=== PATIENT | male | born 1990 | race African-American/Black ===

== ENCOUNTER 2017-09-27 19:50 | Emergency (ER) | payer MEDICAID ==
[~2017-09-27] VITALS: Ht 182.9 cm; Wt 202.3 kg
[~2017-09-27 19:50] MED LIST: DIVA500T4 PO
--- NOTE | 2017-09-27 19:50 | NUR ---
BB SELF; "I FEEL PARANOID, LIKE SOMEONE IS OUT TO GET ME" VSS NAD A/OX4 ABLE TO MAKE NEEDS KNOWN. WILL CONTINUE TO MONITOR FOR ANY CHANGES DURING THE SHIFT.
--- NOTE | 2017-09-27 19:51 | NUR ---
AGUEDA CASTELLANO BEDSIDE FOR EVAL
[2017-09-27 20:30] LABS: BASOPHILS # (AUTO) 0.1 /CMM (0.0-0.2); BASOPHILS % (AUTO) 0.8 % (0.0-2.0); EOSINOPHILS % (AUTO) 2.4 % (0.0-6.0); HEMATOCRIT 35 % (39-51); LYMPHOCYTES # (AUTO) 2.8 /CMM (0.8-4.8); LYMPHOCYTES % (AUTO) 26.9 % (20.0-44.0); MEAN CORPUSCULAR HEMOGLOBIN 28 PG (26.0-33.0); MEAN CORPUSCULAR HGB CONC 34 g/dl (31.0-36.0); MEAN CORPUSCULAR VOLUME 83 fL (80-96); MONOCYTES # (AUTO) 0.8 /CMM (0.1-1.30); MONOCYTES % (AUTO) 7.6 % (2.0-12.0); NEUTROPHILS # (AUTO) 6.4 /CMM (1.8-8.9); NEUTROPHILS % (AUTO) 62.3 % (43.0-81.0); PLATELET COUNT (AUTO) 415 /CMM (150-450); RDW COEFFICIENT OF VARIATION 16.5 (11.5-15.0); RED BLOOD CELL COUNT(AUTO) 4.25 MIL/uL (4.5-6.0); WHITE BLOOD COUNT (AUTO) 10.3 K/uL (4.3-11.0)
[2017-09-27 20:34] LABS: APPEARANCE,URINE Clear (CLEAR); BILIRUBIN,URINE Negative (NEGATIVE); BLOOD, URINE Negative Ery/uL (NEGATIVE); COLOR,URINE Yellow (YELLOW); KETONES,URINE Trace (NEGATIVE); LEUKOCYTE ESTERASE ,URINE Negative (NEGATIVE); NITRITE, URINE Negative (NEGATIVE); PH,URINE 6.5 (5.0-8.0); PROTEIN,URINE Negative (NEGATIVE); UGLUCOSE Negative (NEGATIVE)
--- NOTE | 2017-09-27 20:35 | NUR ---
PATIENT HAS ADMITTED TO ME AND AGUEDA LENZ THAT HE WANTS TO HURT SELF/OTHERS AND HAS A PLAN TO JUMP OF A BIRDGE STATING "ITS JUST TOO MUCH". PT HAS ALSO STATED 3 PSYCH MEDICATIONS THAT HE CURRENTLY IS NONCOMPLIANT WITH AT THIS TIME. STATES "DID YOU HEAR THAT" REGARDING VOICES IN HEAD
[2017-09-27 20:41] LABS: CALCIUM, SERUM 9.3 mg/dL (8.5-10.1); CARBON DIOXIDE 27 mmol/L (21-32); CHLORIDE 103 mmol/L (98-107); GLUCOSE 150 mg/dL (74-106); SODIUM SERUM 137 mmol/L (136-145); UREA NITROGEN, BLOOD 15 mg/dL (7-18)
[2017-09-27 20:47] LABS: ALANINE AMINOTRANSFERASE 61 U/L (12-78); ALBUMIN 3.2 g/dL (3.4-5.0); ALCOHOL, BLOOD < 3 mg/dL (0-0); ALKALINE PHOSPHATASE 87 U/L (46-116); ASPARTATE AMINOTRANSFERASE 39 U/L (15-37); BILIRUBIN,DIRECT 0.1 mg/dL (0.0-0.2); BILIRUBIN,TOTAL 0.2 mg/dL (0.2-1.0); TOTAL PROTEIN, SERUM 7.5 g/dL (6.4-8.2)
[2017-09-27 20:49] LABS: ACETAMINOPHEN < 10 ug/ml (10-30); SALICYLATE 2.1 mg/dL (2.8-20.0)
--- NOTE | 2017-09-27 22:55 | NUR ---
CALLED ART NATURAL RESOURCE SPECIALIST
--- NOTE | 2017-09-28 00:27 | NUR ---
ART AT BEDSIDE FOR EVAL
--- NOTE | 2017-09-28 01:12 | NUR ---
[facility] [phone] ex [phone] nurse to nurse so call [facility] [address] [facility] [id number]
--- NOTE | 2017-09-28 01:26 | NUR ---
REPORT GIVEN TO [facility]
[2017-09-28 02:11] VITALS: BP 131/77
== END 2017-09-28 02:12 ==
LOC: ER 19:50
DX: R45.851 Suicidal ideations (principal); J45.909 Unspecified asthma, uncomplicated; F31.9 Bipolar disorder, unspecified; I10 Essential (primary) hypertension
CPT/HCPCS: 36415; 80048-TC; 80076-TC; 80305; 81000-TC; 85025-TC; A4606; G0480; Z7610

== ENCOUNTER 2022-04-19 08:05 | Emergency (ER) | payer MEDICAID, OTHER ==
[~2022-04-19] VITALS: Ht 182.9 cm; Wt 172.4 kg
--- NOTE | 2022-04-19 08:25 | NUR ---
BIBS W/ C/O BEING "DEPRESSED"; SUICIDAL W/ PLAN "THROW MYSELF INTO TRAFFIC". WANTS VOL PSYCH ADMIT TO [facility]Y. -HI
--- NOTE | 2022-04-19 08:30 | NUR ---
Covid swab done and sent to lab.
--- NOTE | 2022-04-19 08:44 | NUR ---
URINE SAMPLE PROVIDED BY VEENA
[2022-04-19 09:09] LABS: BASOPHILS # (AUTO) 0.1 K/uL (0.0-0.2); BASOPHILS % (AUTO) 1.2 % (0.0-2.0); HEMATOCRIT 40 % (39-51); HEMOGLOBIN 12.7 g/dL (13.5-17.5); LYMPHOCYTES # (AUTO) 2.4 K/uL (0.8-4.8); LYMPHOCYTES % (AUTO) 26.1 % (20.0-44.0); MEAN CORPUSCULAR HGB CONC 32 g/dl (31.0-36.0); MEAN CORPUSCULAR VOLUME 80 fL (80-96); MONOCYTES # (AUTO) 0.6 K/uL (0.1-1.30); MONOCYTES % (AUTO) 6.1 % (2.0-12.0); NEUTROPHILS % (AUTO) 64.6 % (43.0-81.0); PLATELET COUNT (AUTO) 355 K/uL (150-450); RED BLOOD CELL COUNT(AUTO) 4.95 MIL/uL (4.5-6.0); WHITE BLOOD COUNT (AUTO) 9.3 K/uL (4.3-11.0)
[2022-04-19 09:15] LABS: BILIRUBIN,URINE NEGATIVE (NEGATIVE); COLOR,URINE DARK YELLOW (YELLOW); LEUKOCYTE ESTERASE ,URINE NEGATIVE (NEGATIVE); NITRITE, URINE NEGATIVE (NEGATIVE); PROTEIN,URINE NEGATIVE (NEGATIVE); UGLUCOSE NEGATIVE (NEGATIVE); UROBILINOGEN,URINE 0.2 EU/dL (0.2)
[2022-04-19 09:18] LABS: CALCIUM, SERUM 9.1 mg/dL (8.5-10.1); CARBON DIOXIDE 30 mmol/L (21-32); CHLORIDE 102 mmol/L (98-107); GLUCOSE 165 mg/dL (74-106); SODIUM SERUM 137 mmol/L (136-145); UREA NITROGEN, BLOOD 14 mg/dL (7-18)
[2022-04-19 09:23] LABS: ALANINE AMINOTRANSFERASE 25 U/L (12-78); ALBUMIN 3.4 g/dL (3.4-5.0); ALKALINE PHOSPHATASE 106 U/L (46-116); ASPARTATE AMINOTRANSFERASE 15 U/L (15-37); BILIRUBIN,DIRECT 0.1 mg/dL (0.0-0.2); BILIRUBIN,TOTAL 0.3 mg/dL (0.2-1.0); TOTAL PROTEIN, SERUM 8.1 g/dL (6.4-8.2)
[2022-04-19 09:26] LABS: ACETAMINOPHEN 0 ug/ml (10-30); ALCOHOL, BLOOD < 3 mg/dL (0-0)
[2022-04-19 09:43] LABS: BACTERIA,URINE None seen /HPF (None Seen)
[2022-04-19 09:44] LABS: RBC,URINE 0-2 /HPF (0-2); SQUAMOUS EPITHELIAL CELL,UR Moderate /HPF (None Seen)
--- NOTE | 2022-04-19 10:25 | NUR ---
CLINICALS FAXED TO [facility].
[2022-04-19 12:58] VITALS: BP 162/96
--- NOTE | 2022-04-19 12:59 | NUR ---
TRANSPORTED VIA [employer] SOFTWARE. STABLE CONDITION.
== END 2022-04-19 13:01 ==
LOC: ER 08:10
DX: R45.851 Suicidal ideations (principal); F31.9 Bipolar disorder, unspecified; J45.909 Unspecified asthma, uncomplicated; I10 Essential (primary) hypertension; Z91.14 Patient's other noncompliance with medication regimen; Z20.822 Contact with and (suspected) exposure to COVID-19
CPT/HCPCS: 99285; 85025; 80048; 80076; 81001; 36415; 87426; 80143; 80320; 80307; C9803; G0480

== ENCOUNTER 2022-08-07 14:04 | Emergency (ER) | payer OTHER ==
[~2022-08-07] VITALS: Ht 182.9 cm; Wt 145.1 kg
[2022-08-07 14:19] VITALS: BP 160/104
--- NOTE | 2022-08-07 14:43 | NUR ---
covid swab collected and sent to lab
--- NOTE | 2022-08-07 14:54 | NUR ---
fabric coating supervisor at bedside
[2022-08-07 15:20] LABS: BASOPHILS # (AUTO) 0.1 K/uL (0.0-0.2); BASOPHILS % (AUTO) 0.7 % (0.0-2.0); EOSINOPHILS % (AUTO) 0.4 % (0.0-6.0); HEMATOCRIT 38 % (39-51); HEMOGLOBIN 11.9 g/dL (13.5-17.5); LYMPHOCYTES % (AUTO) 15.9 % (20.0-44.0); MEAN CORPUSCULAR HGB CONC 31 g/dl (31.0-36.0); MEAN CORPUSCULAR VOLUME 78 fL (80-96); MONOCYTES # (AUTO) 0.8 K/uL (0.1-1.30); MONOCYTES % (AUTO) 6.1 % (2.0-12.0); NEUTROPHILS # (AUTO) 9.6 K/uL (1.8-8.9); NEUTROPHILS % (AUTO) 76.9 % (43.0-81.0); PLATELET COUNT (AUTO) 430 K/uL (150-450); RED BLOOD CELL COUNT(AUTO) 4.87 MIL/uL (4.5-6.0); WHITE BLOOD COUNT (AUTO) 12.4 K/uL (4.3-11.0)
[2022-08-07 15:33] LABS: CALCIUM, SERUM 9.2 mg/dL (8.5-10.1); CARBON DIOXIDE 27 mmol/L (21-32); CHLORIDE 101 mmol/L (98-107); CREATININE 0.9 mg/dL (0.6-1.3); GLUCOSE 162 mg/dL (74-106); POTASSIUM 3.9 mmol/L (3.5-5.1); SODIUM SERUM 136 mmol/L (136-145); UREA NITROGEN, BLOOD 13 mg/dL (7-18)
[2022-08-07 15:40] LABS: ALANINE AMINOTRANSFERASE 25 U/L (12-78); ALBUMIN 3.5 g/dL (3.4-5.0); ALCOHOL, BLOOD < 3 mg/dL (0-10); ALKALINE PHOSPHATASE 102 U/L (46-116); ASPARTATE AMINOTRANSFERASE 21 U/L (15-37); BILIRUBIN,DIRECT 0.1 mg/dL (0.0-0.2); BILIRUBIN,TOTAL 0.3 mg/dL (0.2-1.0)
[2022-08-07 15:54] LABS: BILIRUBIN,URINE NEGATIVE (NEGATIVE); COLOR,URINE YELLOW (YELLOW); LEUKOCYTE ESTERASE ,URINE TRACE (NEGATIVE); NITRITE, URINE NEGATIVE (NEGATIVE); PROTEIN,URINE NEGATIVE (NEGATIVE); UGLUCOSE NEGATIVE (NEGATIVE); UROBILINOGEN,URINE 0.2 EU/dL (0.2)
[2022-08-07 15:58] LABS: RBC,URINE 0-2 /HPF (0-2)
[2022-08-07 15:59] LABS: BACTERIA,URINE None seen /HPF (None Seen)
--- NOTE | 2022-08-07 18:45 | NUR ---
FAXED CLINICALS TO [facility].
== END 2022-08-07 19:18 | disposition left against medical advice (07) ==
LOC: ER 14:07
DX: F30.9 Manic episode, unspecified (principal); R44.0 Auditory hallucinations; I10 Essential (primary) hypertension; J45.909 Unspecified asthma, uncomplicated; E11.9 Type 2 diabetes mellitus without complications; F17.200 Nicotine dependence, unspecified, uncomplicated; Z20.822 Contact with and (suspected) exposure to COVID-19; Z59.00 Homelessness unspecified; Z79.899 Other long term (current) drug therapy
CPT/HCPCS: 99283; 85025; 80048; 80076; 81001; 36415; 87426; 80143; 80320; 80307; C9803; G0480

== ENCOUNTER 2024-04-30 19:24 | Emergency (ER) | payer OTHER ==
[~2024-04-30] VITALS: Ht 182.9 cm; Wt 181.4 kg
[2024-04-30 21:02] VITALS: BP 168/113; TEMP 97.9; O2SAT 98
[2024-04-30 21:28] LABS: BASOPHILS % (AUTO) 0.3 % (0.0-2.0); EOSINOPHILS # (AUTO) 0.2 K/uL (0.0-0.7); EOSINOPHILS % (AUTO) 2.1 % (0.0-6.0); HEMATOCRIT 37 % (39-51); HEMOGLOBIN 12.1 g/dL (13.5-17.5); LYMPHOCYTES # (AUTO) 2.3 K/uL (0.8-4.8); LYMPHOCYTES % (AUTO) 21.3 % (20.0-44.0); MEAN CORPUSCULAR HEMOGLOBIN 26 PG (26.0-33.0); MEAN CORPUSCULAR HGB CONC 33 g/dl (31.0-36.0); MEAN CORPUSCULAR VOLUME 79 fL (80-96); MONOCYTES # (AUTO) 0.6 K/uL (0.1-1.30); MONOCYTES % (AUTO) 5.7 % (2.0-12.0); NEUTROPHILS # (AUTO) 7.7 K/uL (1.8-8.9); NEUTROPHILS % (AUTO) 70.6 % (43.0-81.0); PLATELET COUNT (AUTO) 419 K/uL (150-450); RED BLOOD CELL COUNT(AUTO) 4.66 MIL/uL (4.5-6.0); RED CELL DISTRIBUTION WIDTH 16.2 % (11.5-15.0); WHITE BLOOD COUNT (AUTO) 10.8 K/uL (4.3-11.0)
[2024-04-30 21:35] LABS: CALCIUM, SERUM 8.6 mg/dL (8.5-10.1); CARBON DIOXIDE 26 mmol/L (21-32); CHLORIDE 103 mmol/L (98-107); CREATININE 0.9 mg/dL (0.6-1.3); GLUCOSE 206 mg/dL (74-106); POTASSIUM 3.9 mmol/L (3.5-5.1); SODIUM SERUM 138 mmol/L (136-145); UREA NITROGEN, BLOOD 9 mg/dL (7-18)
[2024-04-30 21:41] LABS: ALANINE AMINOTRANSFERASE 71 U/L (12-78); ALBUMIN 3.4 g/dL (3.4-5.0); ALCOHOL, BLOOD < 3 mg/dL (0-10); ALKALINE PHOSPHATASE 119 U/L (46-116); ASPARTATE AMINOTRANSFERASE 52 U/L (15-37); BILIRUBIN,DIRECT 0.2 mg/dL (0.0-0.2); BILIRUBIN,TOTAL 0.5 mg/dL (0.2-1.0); SALICYLATE 3.2 mg/dL (2.8-20.0); TOTAL PROTEIN, SERUM 7.8 g/dL (6.4-8.2)
[2024-04-30 21:44] LABS: ACETAMINOPHEN <10 ug/ml (10-30)
[2024-04-30] MEDS ORDERED: OLANZAPINE 5 MG TABLET ONE (23:29)
[2024-04-30] MEDS: OLANZAPINE 5 MG TABLET PO ONE (23:31)
[2024-04-30 23:50] LABS: APPEARANCE,URINE CLEAR (CLEAR); BILIRUBIN,URINE NEGATIVE (NEGATIVE); BLOOD, URINE NEGATIVE Ery/uL (NEGATIVE); COLOR,URINE YELLOW (YELLOW); KETONES,URINE NEGATIVE (NEGATIVE); LEUKOCYTE ESTERASE ,URINE NEGATIVE (NEGATIVE); NITRITE, URINE NEGATIVE (NEGATIVE); PROTEIN,URINE NEGATIVE (NEGATIVE); UGLUCOSE TRACE mg/dL (NEGATIVE)
[2024-05-01 00:01] LABS: BARBITURATE, URINE NEGATIVE (NEGATIVE); BENZODIAZEPINE, URINE NEGATIVE (NEGATIVE); COCCAINE, URINE NEGATIVE (NEGATIVE); OPIATE, URINE NEGATIVE (NEGATIVE); PHENCYCLIDINE SCREEN,URINE NEGATIVE (NEGATIVE)
[2024-05-01 00:07] LABS: AMPHETAMINE, URINE POSITIVE (NEGATIVE)
[2024-05-01 00:08] LABS: CANNABINOID, URINE POSITIVE (NEGATIVE)
[2024-05-01 00:32] LABS: ADD URINE CULTURE NO; BACTERIA,URINE None seen /HPF (None Seen); RBC,URINE NONE SEEN /HPF (0-2); SQUAMOUS EPITHELIAL CELL,UR None Seen /HPF (None Seen); WBC,URINE NONE SEEN /HPF (0-3)
[2024-05-01] MEDS ORDERED: OLANZAPINE ZYDIS 5 MG TAB.RAPDIS ONE (04:35)
[2024-05-01] MEDS: OLANZAPINE ZYDIS 5 MG TAB.RAPDIS PO ONE (04:38)
== END 2024-05-01 05:13 | disposition left against medical advice (07) ==
LOC: ER 19:28
DX: F23 Brief psychotic disorder (principal); R45.851 Suicidal ideations; E11.9 Type 2 diabetes mellitus without complications; F17.200 Nicotine dependence, unspecified, uncomplicated; I10 Essential (primary) hypertension; J45.909 Unspecified asthma, uncomplicated; Z59.00 Homelessness unspecified; Z79.899 Other long term (current) drug therapy; Z20.822 Contact with and (suspected) exposure to COVID-19
CPT/HCPCS: 36415; 80048-TC; 80076-TC; 81001; 85025-TC; G0480